=== PATIENT | male | born 1980 | race African-American/Black ===

== ENCOUNTER 2022-08-25 19:48 | Emergency (ER) | payer SELFPAY ==
[~2022-08-25] VITALS: Ht 193 cm; Wt 104.3 kg
[2022-08-25 19:55] VITALS: BP 131/86; TEMP 98.2
--- NOTE | 2022-08-25 19:55 | NUR ---
BIBSELF FROM HOME FOR JAW PAIN, SWELLING OF LEFT FACE X1 DAY, CRACKED TOOTH, 2ND EPISODE (HAPPENED 6MOS AGO), TOOK AMOXICILLIN AT THE TIME. PT AAOX4, AMBULATORY, IN NAD, VITALS CHECKED.
[2022-08-25] MEDS ORDERED: AMOX-430 PO (20:19)
--- NOTE | 2022-08-25 20:30 | NUR ---
Patient discharged to home in stable condition. Written and verbal after care instructions given. Patient verbalizes understanding of instruction.
== END 2022-08-25 20:30 | disposition home or self-care (01) ==
LOC: ER 19:52
DX: K08.89 Other specified disorders of teeth and supporting structures (principal); Z79.899 Other long term (current) drug therapy